=== PATIENT | male | born 1965 | race African-American/Black ===

== ENCOUNTER → 2020-02-20 | Outpatient (CLI) | payer OTHER ==
--- NOTE | 2020-02-20 17:20 | RAD ---
2 view lumbar spine series Clinical indications: Back pain FINDINGS: The transverse processes are intact. No compression fracture is evident. No discitis or lytic process is evident. There is a grade 1 anterolisthesis of L4-5. Degenerative facet arthropathy is seen at this level and at L5-S1. There is severe degenerative disc space narrowing and moderate degenerative endplate spurring at L5-S1. Mild retrolisthesis is seen at this level. There is mild degenerative endplate spurring at L1-2 and L2-3 and L3-4 and L4-5 without significant disc space narrowing. IMPRESSION: No acute compression fracture. Grade 1 anterolisthesis of L4-5. Mild retrolisthesis of L5-S1. Severe degenerative disc space narrowing at L5-S1. These findings may combine to narrow the neural foramina in addition to spinal canal stenosis at this level. Electronically signed by: Dylon Leija MD (02/20/2020 5:17 PM) [id number]
== END | disposition home or self-care (01) ==
LOC: RAD 10:57
PROVIDERS: ATTEND Surgery
DX: M47.817 Spondylosis without myelopathy or radiculopathy, lumbosacral region (principal); M43.17 Spondylolisthesis, lumbosacral region; M48.07 Spinal stenosis, lumbosacral region; M99.53 Intervertebral disc stenosis of neural canal of lumbar region; M25.78 Osteophyte, vertebrae
CPT/HCPCS: 72100